=== PATIENT | female | born 1965 | race Caucasian/White ===

== ENCOUNTER 2016-10-23 16:48 | Emergency (ER) | payer MEDICAID, OTHER ==
[2016-10-23 17:01] VITALS: RESP 18
--- NOTE | 2016-10-23 17:46 | C.PDOC ---
History Of Present Illness The patient, a 51 y/o female, presents to the ED for evaluation of paresthesia to her right hand after waking up this morning. Patient states she occasionally experiences these symptoms while she is sleeping and she finds relief after shaking her hand. 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 She denies recent trauma/injury to the affected area. Time Seen by Provider: 10/23/16 17:23 Chief Complaint (Nursing): Weakness/Neurological Deficit History Per: Patient History/Exam Limitations: no limitations Onset/Duration Of Symptoms: Hrs Current Symptoms Are (Timing): Still Present Additional History Per: Patient Past Medical History Reviewed: Historical Data, Nursing Documentation, Vital Signs Vital Signs: Last Vital Signs Temp 97.9 F 10/23/16 18:11 Pulse 72 10/23/16 18:11 Resp 18 10/23/16 18:11 BP 138/92 H 10/23/16 18:11 Pulse Ox 98 10/23/16 18:59 - Medical History PMH: HTN, Hypercholesterolemia Surgical History: No Surg Hx Family History: States: Unknown Family Hx - Social History Hx Alcohol Use: Yes Hx Substance Use: No - Immunization History Hx Tetanus Toxoid Vaccination: No Hx Influenza Vaccination: No Hx Pneumococcal Vaccination: No Review Of Systems Except As Marked, All Systems Reviewed And Found Negative. Neurological: Positive for: Other (+paresthesia to right hand ) Physical Exam - Physical Exam Appears: Non-toxic, No Acute Distress Skin: Normal Color, Warm, Dry Head: Atraumatic, Normacephalic Eye(s): bilateral: Normal Inspection, PERRL, EOMI Oral Mucosa: Moist Neck: Supple Chest: Symmetrical Cardiovascular: Rhythm Regular Respiratory: Normal Breath Sounds Extremity: Normal ROM, Capillary Refill (less than 2 seconds), Other ((+) Phalen 's test to right hand, exacerbation of right palmar paresthesia) Pulses: Right Radial: Normal Neurological/Psych: Oriented x3, Normal Speech, Normal Cognition, Other (no focal deficits ) Gait: Steady ED Course And Treatment O2 Sat by Pulse Oximetry: 98 (on RA) Pulse Ox Interpretation: Normal Medical Decision Making Medical Decision Making: Phalen's maneuver provokes R palmar parasthesias typical of pt's nighttime symptoms more c/w Carpal Tunnel Wrist splints QHS and opt f/u. Disposition Doctor Will See Patient In The: Office Counseled Patient/Family Regarding: Studies Performed, Diagnosis - Disposition Referrals: [facility] [Outside] Disposition: HOME/ ROUTINE Disposition Time: 17:46 Condition: GOOD Additional Instructions: pone el guince en la luis derecha en la hora de dormir- debe desminuir las sintomas. Sigue en la [facility] gratis para hamm evaluacion' Instructions: Carpal Tunnel Syndrome (ED) Print Language: PRYDEINIG - Clinical Impression Clinical Impression: Right hand paresthesia - Scribe Statement The provider has reviewed the documentation as recorded by the Scribe (Martha Madrigal) Provider Attestation: All medical record entries made by the Scribe were at my direction and personally dictated by me. I have reviewed the chart and agree that the record accurately reflects my personal performance of the history, physical exam, medical decision making, and the department course for this patient. I have also personally directed, reviewed, and agree with the discharge instructions and disposition.
[2016-10-23 18:13] VITALS: BP 138/92; PULSE 72; TEMP 97.9
[2016-10-23 18:55] VITALS: O2SAT 98
== END 2016-10-23 18:12 | disposition home or self-care (01) ==
LOC: C.ER 16:48
DX: R20.9 Unspecified disturbances of skin sensation (principal)